=== PATIENT | male | born 1995 | race Asian ===

== ENCOUNTER 2017-04-13 18:06 | Emergency (ER) | payer MEDICAID ==
[~2017-04-13] VITALS: Ht 172.7 cm; Wt 63.5 kg
[2017-04-13 19:08] LABS: Hematocrit 42.1 % (41.0-53.0); Hemoglobin 14.1 g/dL (13.5-17.5); Mean Corpuscular Hemoglobin 31.8 pg (28.0-32.0); Mean Corpuscular Hgb Conc. 33.4 g/dL (32.0-36.0); Mean Corpuscular Volume 95.2 fL (80.0-100.0); Platelet Count (auto) 255 10^3/uL (140-450); Red Blood Cells 4.42 10^6/uL (4.5-5.90); Red Cell Distribution Width 13.1 % (11.8-14.3); White Blood Cell 6.8 10^3/uL (4.4-10.8)
[2017-04-13 19:12] LABS: Band Neutrophils % (manual) 0; Basophils % (manual) 0 (0.0-2.0); Blast Cells 0; Eosinophils % (manual) 0 (0-7); Metamyelocytes % 0; Myelocytes % 0; Promyelocytes % 0; Reactive Lymphocytes 0
[2017-04-13 19:28] LABS: Albumin 3.6 g/dL (3.4-5.0); BUN/Creatinine Ratio 14.4; Bilirubin, Total 0.3 mg/dL (0.2-1.0); Calcium 8.6 mg/dL (8.5-10.1); Potassium 3.8 mmol/L (3.5-5.1); Total Protein 7.7 g/dL (6.4-8.2)
[2017-04-13 19:30] LABS: Lymphocytes % (manual) 41 (10.0-50.0); Monocytes % (manual) 18 (0-12)
[2017-04-13 23:49] VITALS: BP 103/57
== END 2017-04-14 00:13 | disposition home or self-care (01) ==
LOC: ER 18:06
DX: K52.9 Noninfective gastroenteritis and colitis, unspecified (principal)
CPT/HCPCS: 36415; 74176; 80053; 85007; 85027